=== PATIENT | female | born 1965 | race Asian ===

== ENCOUNTER → 2024-06-01 | Outpatient (CLI) | payer OTHER, SELFPAY ==
[2024-06-01 07:09] LABS: Collection Type, Urine Clean Catch
[2024-06-01 08:23] LABS: Basophils # (Auto) 0.1 Thou/mm3 (0.0-0.2); Basophils % (Auto) 1 % (0-2.5); Eosinophils # (Auto) 0.1 Thou/mm3 (0.0-0.5); Eosinophils % (Auto) 2 % (0-10); Hematocrit 37.4 % (36.0-46.0); Hemoglobin 12.4 g/dL (12.0-16.0); Immature Granulocytes % (Auto) 0 % (0-0); Immature Granulocytes Auto 0.01 Thou/mm3 (0.00-0.00); Lymphocytes # (Auto) 2.3 Thou/mm3 (1.0-4.8); Lymphocytes % (Auto) 33 % (10-50); Mean Corpuscular HGB Conc 33.2 g/dl (31.0-37.0); Mean Corpuscular Hemoglobin 28.2 pg (25.0-35.0); Mean Corpuscular Volume 85 fL (80-100); Monocytes # (Auto) 0.4 Thou/mm3 (0.0-0.8); Monocytes % (Auto) 6 % (0-12); Neutrophils # (Auto) 4.2 Thou/mm3 (1.8-7.7); Neutrophils % (Auto) 59 % (37-80); Nucleated Red Blood Cell % 0 /100 WBC (0); Platelet Count 344 Thou/mm3 (140-440); RDW Standard Deviation 40.9 fL (36.4-46.3); Red Blood Count 4.39 Miln/mm3 (4.00-5.20); White Blood Count 7.1 Thou/mm3 (3.6-11.0)
[2024-06-01 08:28] LABS: Bacteria,Urine 2+; Bilirubin,Urine Negative (Negative); Blood,Urine Negative (Negative); Budding Yeast,Urine Present; Color,Urine Lt-Yellow (Lt Yel-Yel); Glucose, Urine Negative (Negative); Ketones,Urine Negative (Negative); Leukocyte Esterase,Urine Positive (Negative); Nitrite,Urine Positive (Negative); Protein,Urine 1+ (Neg - Trace); RBC,Urine 7 /hpf (0-3); Squamous Epithelial Cell,Urine 2 /hpf (0-5); Urobilinogen,Urine Negative mg/dL (0.0-1.0); WBC,Urine 141 /hpf (0-5)
[2024-06-01 08:33] LABS: Clarity,Urine Hazy (Clear/Hazy)
[2024-06-01 08:34] LABS: Glucose Estimated Average 126 mg/dL (80-131)
[2024-06-01 08:40] LABS: Alanine Aminotransferase 23 U/L (10-49); Albumin, Serum 4.9 gm/dL (3.5-5.0); Albumin/Globulin Ratio 1.6 (1.2-2.2); Alkaline Phosphatase 96 U/L (46-116); Anion Gap 8 (7-16); Aspartate Amino Transferase 15 U/L (0-34); BUN/Creatinine Ratio 18 Ratio (12-20); Bilirubin,Total 0.5 mg/dL (0.3-1.2); Blood Urea Nitrogen 16 mg/dL (9-23); Calcium 10.2 mg/dL (8.3-10.6); Calcium (Corrected) 10.2 mg/dL (8.5-10.1); Carbon Dioxide 28.1 mMol/L (20.0-31.0); Cardiac Risk Estimate 5.1 RATIO (3.7-5.6); Chloride 104 mMol/L (98-107); Cholesterol 193 mg/dL (132-200); Creatinine (Component) 0.9 mg/dL (0.6-1.3); Globulin 3.1 gm/dL (2.3-3.5); Glucose 128 mg/dL (74-106); HDL Cholesterol 38 mg/dL (40-60); LDL Cholesterol,Calculated 82 mg/dL (0-130); Osmolality,Calculated 282 (275-295); Potassium 4.2 mMol/L (3.4-5.1); Sodium 140 mMol/L (136-145); Thyroid Stimulating Hormone 1.39 uIU/mL (0.55-4.78); Triglycerides 364 mg/dL (30-150); Uric Acid 7.5 mg/dL (3.1-7.8); eGFR > 60 See Note
[2024-06-01 08:41] LABS: Vitamin B12 578 pg/mL (211-911); Vitamin D 25 Hydroxy Total 23.1 ng/mL (7.3-40.2)
[2024-06-01 08:42] LABS: Creatinine MALB Rnd Ur 113 mg/dL (30-125); Microalbumin Creat Ratio 104 mg/gCrea (<30); Microalbumin, Random Urine 118 mg/L (0-300)
== END | disposition home or self-care (01) ==
PROVIDERS: PCP Internal Medicine; Referring Provider Internal Medicine; Visit Provider Internal Medicine
DX: N39.0 Urinary tract infection, site not specified (principal); E11.9 Type 2 diabetes mellitus without complications; E78.5 Hyperlipidemia, unspecified; I10 Essential (primary) hypertension
CPT/HCPCS: 36415; 80053; 80061; 81001; 82043; 82306; 82570; 82607; 83036; 84443; 84550; 85025

== ENCOUNTER 2024-07-22 11:00 | Emergency (ER) | payer OTHER, SELFPAY ==
[2024-07-22 11:00] VITALS: BMI 25.7
[2024-07-22 11:46] VITALS: BP 169/74; PULSE 85; RESP 18; TEMP 36.7; O2SAT 98; BMI 26.9
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
[2024-07-22] MEDS: IBUPROFEN TAB 600 MG TABLET PO (12:16)
--- NOTE | 2024-07-22 12:16 | PC.NURSE ---
GIVEN JUICE, MILK AND SANDWICH AND WILL RECHECK BLOOD SUGAR IN 15 MINUTES
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
[2024-07-22] MEDS: DEXTROSE 50%-WATER INJ 50 ML SYRINGE IV (12:41)
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
[2024-07-22 14:05] LABS: Basophils % (Auto) 1 % (0-2.5); Eosinophils # (Auto) 0.1 Thou/mm3 (0.0-0.5); Eosinophils % (Auto) 2 % (0-10); Hematocrit 34.4 % (36.0-46.0); Hemoglobin 11.5 g/dL (12.0-16.0); Immature Granulocytes % (Auto) 1 % (0-0); Immature Granulocytes Auto 0.03 Thou/mm3 (0.00-0.00); Lymphocytes # (Auto) 2.3 Thou/mm3 (1.0-4.8); Lymphocytes % (Auto) 34 % (10-50); Mean Corpuscular HGB Conc 33.4 g/dl (31.0-37.0); Mean Corpuscular Hemoglobin 28.4 pg (25.0-35.0); Mean Corpuscular Volume 85 fL (80-100); Monocytes # (Auto) 0.5 Thou/mm3 (0.0-0.8); Monocytes % (Auto) 8 % (0-12); Neutrophils # (Auto) 3.7 Thou/mm3 (1.8-7.7); Neutrophils % (Auto) 55 % (37-80); Nucleated Red Blood Cell % 0 /100 WBC (0); Platelet Count 306 Thou/mm3 (140-440); RDW Standard Deviation 40.6 fL (36.4-46.3); Red Blood Count 4.05 Miln/mm3 (4.00-5.20); White Blood Count 6.6 Thou/mm3 (3.6-11.0)
[2024-07-22 14:17] LABS: Alanine Aminotransferase 14 U/L (10-49); Albumin, Serum 4.7 gm/dL (3.5-5.0); Albumin/Globulin Ratio 1.6 (1.2-2.2); Alkaline Phosphatase 94 U/L (46-116); Anion Gap 13 (7-16); Aspartate Amino Transferase 16 U/L (0-34); BUN/Creatinine Ratio 24 Ratio (12-20); Bilirubin,Total 0.4 mg/dL (0.3-1.2); Blood Urea Nitrogen 19 mg/dL (9-23); Calcium 9.7 mg/dL (8.3-10.6); Calcium (Corrected) 9.7 mg/dL (8.5-10.1); Carbon Dioxide 22.6 mMol/L (20.0-31.0); Chloride 104 mMol/L (98-107); Creatinine (Component) 0.8 mg/dL (0.6-1.3); Estimated Creatinine Clearance 70.6 mL/min (>60); Globulin 2.9 gm/dL (2.3-3.5); Glucose 64 mg/dL (74-106); Osmolality,Calculated 279 (275-295); Potassium 3.4 mMol/L (3.4-5.1); Sodium 140 mMol/L (136-145); Total Protein 7.6 gm/dL (5.7-8.2); eGFR > 60 See Note
[2024-07-22 15:30] VITALS: BP 180/93; PULSE 82; RESP 18; TEMP 36.8; O2SAT 100
[2024-07-22 17:31] LABS: Collection Type, Urine Clean Catch
[2024-07-22 17:52] LABS: Bacteria,Urine Rare; Bilirubin,Urine Negative (Negative); Blood,Urine Negative (Negative); Clarity,Urine Clear (Clear/Hazy); Color,Urine Colorless (Lt Yel-Yel); Glucose, Urine Negative (Negative); Ketones,Urine Negative (Negative); Leukocyte Esterase,Urine Positive (Negative); Nitrite,Urine Negative (Negative); PH,Urine 6.5 (5.0-7.0); Protein,Urine Negative (Neg - Trace); RBC,Urine 2 /hpf (0-3); Specific Gravity,Urine 1.006 (1.001-1.035); Squamous Epithelial Cell,Urine 2 /hpf (0-5); Urobilinogen,Urine Negative mg/dL (0.0-1.0); WBC,Urine 9 /hpf (0-5)
[2024-07-22 19:35] VITALS: BP 175/79; PULSE 74; RESP 18; TEMP 36.7; O2SAT 98
== END 2024-07-22 19:35 | disposition home or self-care (01) ==
PROVIDERS: Nurse Practitioner Primary Care; Emergency Provider Emergency Medicine; PCP Internal Medicine
DX: S16.1XXA Strain of muscle, fascia and tendon at neck level, initial encounter (principal); S09.90XA Unspecified injury of head, initial encounter; R07.9 Chest pain, unspecified; V89.9XXA Person injured in unspecified vehicle accident, initial encounter
CPT/HCPCS: 36415; 70450; 71046; 72125; 80053; 81001; 85025; 99284; A9270

== ENCOUNTER 2024-10-19 14:42 | Outpatient (RCR) | payer OTHER, SELFPAY ==
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
== END 2024-10-25 23:59 | disposition home or self-care (01) ==
LOC: CPTX 14:42
PROVIDERS: PCP Internal Medicine; Referring Provider Internal Medicine; Visit Provider Internal Medicine
DX: M54.2 Cervicalgia (principal); R51.9 Headache, unspecified; R20.0 Anesthesia of skin; R26.2 Difficulty in walking, not elsewhere classified; R26.89 Other abnormalities of gait and mobility; S13.4XXD Sprain of ligaments of cervical spine, subsequent encounter; V89.2XXD Person injured in unspecified motor-vehicle accident, traffic, subsequent encounter
CPT/HCPCS: 97162

== ENCOUNTER 2024-11-15 08:30 | Outpatient (RCR) | payer OTHER, SELFPAY ==
--- NOTE | 2024-10-31 09:59 | PT.ODAYNRPT ---
PT Outpatient Daily Note OP Daily Note Outpatient Physical Therapy Treatment Date: 10/31/24 Visit Reasons: NECK PAIN Subjective: Pt c/o stiff and painful neck. Objective: Please see flow sheet for ther ex list. Assessment: Performed STM and occipital release, pt tolerated well decrease c/o pain post MT. Plan: Continue with POC. Length of Time (minutes) of Treatment: 30 Minutes Procedure Charges Therapeutic Exercise 30 minutes: Yes
--- NOTE | 2024-11-07 09:58 | PTNOTE_ITS ---
PT Outpatient Daily Note OP Daily Note Outpatient Physical Therapy Treatment Date: 11/07/24 Visit Reasons: NECK PAIN Subjective: Pt's neck pain and dizziness is about the same. Pt still feels tightness in her neck. Objective: Please see flow chart for list of ther ex performed Assessment: decrease suboccipital muscles tension and pain post STM. 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
--- NOTE | 2024-11-09 16:31 | PT.ODAYNRPT ---
PT Outpatient Daily Note OP Daily Note Outpatient Physical Therapy Treatment Date: 11/09/24 Visit Reasons: NECK PAIN Subjective: Pt c/o neck feeling sore but overall feeling progress. Objective: Please see flow sheet for ther ex list. Assessment: Manual stretches tolerated with minimal discomfort. Plan: Continue with POC. Length of Time (minutes) of Treatment: 30 Minutes Procedure Charges Therapeutic Exercise 30 minutes: Yes
--- NOTE | 2024-11-13 14:18 | PT.ODAYNRPT ---
PT Outpatient Daily Note OP Daily Note Outpatient Physical Therapy Treatment Date: 11/13/24 Visit Reasons: NECK PAIN Subjective: Pt works at 2 pm and needs to leave 5 mins before 2 pm. Pt reports of less headache lately and feels that STM really helps Objective: Please see flow chart for list of ther ex performed Assessment: decrease suboccipitals post STM. Cues to correct chin tuck exercise Plan: Continue with PT Length of Time (minutes) of Treatment: 30 Minutes Procedure Charges Therapeutic Exercise 15 minutes: Yes Manual Boarding Machine Operator 15 minutes: Yes
--- NOTE | 2024-11-15 09:18 | PT.ODAYNRPT ---
PT Outpatient Daily Note OP Daily Note Outpatient Physical Therapy Treatment Date: 11/15/24 Visit Reasons: NECK PAIN Subjective: Pt reports neck has been feeling better. Objective: Please see flow sheet for ther ex list. Assessment: Pt presents in clinic with decrease pain allowing for progression of interventions. Plan: Continue with pOC. Length of Time (minutes) of Treatment: 30 Minutes Procedure Charges Therapeutic Exercise 30 minutes: Yes
== END 2024-11-25 23:59 | disposition home or self-care (01) ==
LOC: CPTX 08:30
PROVIDERS: PCP Internal Medicine; Referring Provider Internal Medicine; Visit Provider Internal Medicine
DX: M54.2 Cervicalgia (principal); R51.9 Headache, unspecified; R20.0 Anesthesia of skin; R26.2 Difficulty in walking, not elsewhere classified; S13.4XXD Sprain of ligaments of cervical spine, subsequent encounter; V89.2XXD Person injured in unspecified motor-vehicle accident, traffic, subsequent encounter
CPT/HCPCS: 97110; 97140

== ENCOUNTER 2024-12-25 08:00 | Outpatient (RCR) | payer OTHER, SELFPAY ==
--- NOTE | 2024-12-06 08:33 | PT.ODAYNRPT ---
PT Outpatient Daily Note OP Daily Note Outpatient Physical Therapy Treatment Date: 12/06/24 Visit Reasons: neck pain Subjective: Pt reports neck is doing better, notices less pain. Objective: Please see flow sheet for ther ex list. Assessment: Progression of interventions completed with muscle fatigue but no pain. Plan: Continue with POC. Length of Time (minutes) of Treatment: 30 Minutes Procedure Charges Therapeutic Exercise 30 minutes: Yes
--- NOTE | 2024-12-13 09:02 | PT.ODAYNRPT ---
PT Outpatient Daily Note OP Daily Note Outpatient Physical Therapy Treatment Date: 12/13/24 Visit Reasons: neck pain Subjective: Pt neck feel so so. Pt has good and bad days. Pt does notice less headache lately. Objective: Please see flow chart for list of ther ex performed Assessment: Pt continues to exhibit left neck upper trape, levator, and suboccipitals tightness vs to the right side. Post STM and stretching helped improved tension and flexibility. Plan: Continue with PT Length of Time (minutes) of Treatment: 30 Minutes Procedure Charges Therapeutic Exercise 15 minutes: Yes Manual Organ Teacher 15 minutes: Yes
--- NOTE | 2024-12-25 09:21 | PT.ODAYNRPT ---
PT Outpatient Daily Note OP Daily Note Outpatient Physical Therapy Treatment Date: 12/25/24 Visit Reasons: neck pain Subjective: Pt reports neck pain improving, notices that she has not had pain or symptoms down her arm. Objective: Please see flow sheet for ther ex list. Assessment: Pt presents in clinic with improved symptoms indicating progress. Plan: Continue with pOC. Pt has 2 visits left. Length of Time (minutes) of Treatment: 30 Minutes Procedure Charges Therapeutic Exercise 30 minutes: Yes
== END 2024-12-25 23:59 | disposition home or self-care (01) ==
LOC: CPTX 08:00
PROVIDERS: PCP Internal Medicine; Referring Provider Internal Medicine; Visit Provider Internal Medicine
DX: M54.2 Cervicalgia (principal); R20.0 Anesthesia of skin; R51.9 Headache, unspecified; R26.2 Difficulty in walking, not elsewhere classified; R26.89 Other abnormalities of gait and mobility; S13.4XXD Sprain of ligaments of cervical spine, subsequent encounter; V89.2XXD Person injured in unspecified motor-vehicle accident, traffic, subsequent encounter
CPT/HCPCS: 97110; 97140

== ENCOUNTER 2025-01-16 09:00 | Outpatient (RCR) | payer OTHER, SELFPAY ==
--- NOTE | 2025-01-11 16:50 | PT.ODAYNRPT ---
PT Outpatient Daily Note OP Daily Note Outpatient Physical Therapy Treatment Date: 01/11/25 Visit Reasons: Neck pain Subjective: Pt reports neck pain has progressed. Objective: Please see flow sheet for ther ex list. Assessment: Pt presents in clinic with decrease c/o pain, pt has one visit left will d/c to continue with HEP independently. Plan: Continue with poC. Length of Time (minutes) of Treatment: 30 Minutes Procedure Charges Therapeutic Exercise 30 minutes: Yes
--- NOTE | 2025-01-16 12:55 | PT.ODS1RPT ---
PT OP Progress/Discharge Note Date of Service: 01/16/25 Progress Note/DC Note Progress Note/Discharge Note: DC Note Patient Information Visit Reasons: Neck pain Medical Diagnosis: Neck Pain; Dizziness Treatment Dx #1: Headache Treatment Dx #2: Neck Pain Service Discharge Date: 01/16/25 Status Subjective: Pt's neck is better and reports of decrease headache since physical therapy. Pt has been able to return back to work, cook, clean, and performing recreational activities with minimal limitation. At this time Pt feels comfortable being release from care with exercises to continue at home. Objective: C/S AROM: all motions are WNL BUE AROM: all motions are WNL BUE MMTs: grossly 4-/5 Scapula MMTs: grossly 3+/5 DNF Endurance Test: 15 sec Assessment: Pt demonstrate functional c/s mobility and strength allowing her to resume ADLs, chores, and recreational activities with minimal limitation. Pt has met set goals in therapy and will no longer benefit from physical therapy. Pt was instructed on HEP last session and educated to continue exercises to maintain overall mobility. Pt performed all exercises safely, thank you for your referrals. Plan: D/C home with HEP and follow up with MD VENEGAS Procedure Charges Therapeutic Exercise 30 minutes: Yes
== END 2025-01-25 23:59 | disposition home or self-care (01) ==
LOC: CPTX 09:00
PROVIDERS: PCP Internal Medicine; Referring Provider Internal Medicine; Visit Provider Internal Medicine
DX: M54.2 Cervicalgia (principal); R51.9 Headache, unspecified; R20.0 Anesthesia of skin; R26.2 Difficulty in walking, not elsewhere classified; R26.89 Other abnormalities of gait and mobility; S13.4XXD Sprain of ligaments of cervical spine, subsequent encounter; V89.2XXD Person injured in unspecified motor-vehicle accident, traffic, subsequent encounter
CPT/HCPCS: 97110